=== PATIENT | female | born 1970 | race African-American/Black ===

== ENCOUNTER 2019-04-02 23:28 | Emergency (ER) | payer MEDICAID ==
[~2019-04-02] VITALS: Ht 160 cm; Wt 66.7 kg
--- NOTE | 2019-04-02 23:52 | NUR ---
rectal exam done by dr Mccullough
[2019-04-03 00:42] VITALS: BP 128/86
== END 2019-04-03 00:13 | disposition home or self-care (01) ==
LOC: ER 23:29
DX: K59.00 Constipation, unspecified (principal); F15.90 Other stimulant use, unspecified, uncomplicated; F17.200 Nicotine dependence, unspecified, uncomplicated
CPT/HCPCS: 99283

== ENCOUNTER 2019-06-04 12:18 | Emergency (ER) | payer MEDICAID ==
[~2019-06-04] VITALS: Ht 162.6 cm; Wt 72.7 kg
[2019-06-04 12:36] VITALS: BP 128/64
[2019-06-04] MEDS ORDERED: PANT-47 PO (12:50)
[2019-06-04] MEDS ORDERED: SUCR1TAB34 PO (12:50)
[2019-06-04] MEDS ORDERED: ALBU8.5H8 IH (12:51)
== END 2019-06-04 13:15 | disposition home or self-care (01) ==
LOC: ER 12:19
DX: K21.9 Gastro-esophageal reflux disease without esophagitis (principal); J02.9 Acute pharyngitis, unspecified; R05 Cough; F15.90 Other stimulant use, unspecified, uncomplicated; Z79.899 Other long term (current) drug therapy
CPT/HCPCS: 99283

== ENCOUNTER 2020-07-07 15:35 | Emergency (ER) | payer MEDICAID ==
[~2020-07-07 15:35] MED LIST: ALBU8.5H8 IH; PANT-47 PO; SUCR1TAB34 PO
== END 2020-07-07 16:09 | disposition left against medical advice (07) ==
LOC: ER 15:36
DX: M54.9 Dorsalgia, unspecified (principal); Z53.21 Procedure and treatment not carried out due to patient leaving prior to being seen by health care provider